=== PATIENT | female | born 1995 | race African-American/Black ===

== ENCOUNTER 2017-04-16 17:20 | Emergency (ER) | payer OTHER ==
[~2017-04-16] VITALS: Ht 167.6 cm; Wt 104.0 kg
[~2017-04-16 17:20] MED LIST: AMOXICILLIN500 MG PO
[2017-04-16] MEDS ORDERED: MOTRIN800 MG PO (18:01)
[2017-04-16] MEDS ORDERED: FLEXERIL PO (18:01)
[2017-04-16 19:24] VITALS: BP 144/83
== END 2017-04-16 19:25 | disposition home or self-care (01) | DRG 563 ==
LOC: ED 17:20
DX: S39.012A Strain of muscle, fascia and tendon of lower back, initial encounter (principal); S90.31XA Contusion of right foot, initial encounter; V49.49XA Driver injured in collision with other motor vehicles in traffic accident, initial encounter

== ENCOUNTER 2020-06-17 15:23 | Emergency (ER) | payer SELFPAY ==
[~2020-06-17] VITALS: Ht 167.6 cm; Wt 100.0 kg
[~2020-06-17 15:23] MED LIST changes: +FLEXERIL PO; +MOTRIN800 MG PO
[2020-06-17 16:34] VITALS: BP 168/70
--- NOTE | 2020-06-20 16:07 | NUR ---
Notified patient of positive Covid results. Patient very upset and tearful. Patient denies difficulty breathing or fever. Patient c/o loss of taste. Advised patient to quarantine until contacted by the [facility] with further instructions. Advised patient to retrn to ED with any difficulty breathing or other urgent needs. Patient verbalized understanding.
== END 2020-06-17 16:50 | disposition home or self-care (01) | DRG 179 ==
LOC: ED 15:23
DX: U07.1 COVID-19 (principal)